=== PATIENT | male | born 1995 | race Hispanic/Latino ===

== ENCOUNTER 2021-05-26 10:55 | Emergency (ER) | payer OTHER ==
[~2021-05-26] VITALS: Ht 180.3 cm; Wt 113.4 kg
[2021-05-26 11:00] VITALS: BP 120/80
== END 2021-05-26 15:06 | disposition left against medical advice (07) ==
LOC: EDH 10:55
DX: R51.9 Headache, unspecified (principal); R50.9 Fever, unspecified; Z53.21 Procedure and treatment not carried out due to patient leaving prior to being seen by health care provider